=== PATIENT | female | born 2000 | race Caucasian/White ===

== ENCOUNTER 2022-09-22 06:17 | Day surgery (SDC) | payer OTHER, SELFPAY ==
[2022-09-22] MEDS ORDERED: Levofloxacin 500 mg/D5W 100 ml Premix Bag ONE ×2 (08:54→09:37)
[2022-09-22] MEDS ORDERED: fentaNYL PF 100 MCG/2 ML SYRINGE ONE (09:37)
[2022-09-22] MEDS ORDERED: Midazolam HCl 2 mg/2 ml Vial ONE (09:42)
[2022-09-22] MEDS ORDERED: Dexamethasone 20 MG/5 ML VIAL ONE (09:50)
[2022-09-22] MEDS ORDERED: Lidocaine 1% PF 5 ML VIAL ONE (09:50)
[2022-09-22] MEDS ORDERED: Ketorolac Tromethamine 30 MG/ML VIAL ONE (09:50)
[2022-09-22] MEDS ORDERED: PROPOFOL 200 MG/20 ML VIAL ONE (09:50)
[2022-09-22] MEDS ORDERED: Iopamidol 15 ML ONE (10:23)
[2022-09-22] MEDS ORDERED: Phenazopyridine HCl 100 MG TAB ONE (10:33)
[2022-09-22] MEDS ORDERED: Oxybutynin 5 MG TAB ONE (10:33)
== END 2022-09-22 12:50 | disposition home or self-care (01) ==
LOC: SDC 06:17
PROVIDERS: ATTEND Urology
PROC: 0T9780Z Drainage of Left Ureter with Drainage Device, Via Natural or Artificial Opening Endoscopic (ICD-10-PCS; principal; 2022-09-22)
DX: N13.2 Hydronephrosis with renal and ureteral calculous obstruction (principal); Z90.49 Acquired absence of other specified parts of digestive tract
CPT/HCPCS: 74420; 87086; C1769; C2617; J1100; J1885; J1956; J2250; J2704; Q9967

== ENCOUNTER 2022-09-24 11:29 | Outpatient (CLI) | payer OTHER ==
[2022-09-24 13:44] LABS: Hemoglobin 10.5 g/dL (12.0-15.5); Mean Corpuscular HGB CONC 32.7 g/dL (32.0-36.0); Mean Corpuscular Hemoglobin 29.5 pg (27.0-33.0); Mean Corpuscular Volume 90.2 fl (81.6-98.3); Mean Platelet Volume 11.4 fl (7.4-10.4); Platelet Count 266 10x3/uL (150-450); RBC Distribution Width 12.8 % (11.5-14.5); Red Blood Cell (RBC) Count 3.56 10x6/uL (3.90-5.03); White Blood Cell (WBC) Count 8.2 10x3/uL (3.5-10.5)
[2022-09-24 13:57] LABS: BHCG - Serum Negative (NEGATIVE); Pregs Control Background? CLEAR/WHITE (CLR/WHITE); Pregs Control Bar Appear? YES (CONTROL BAR)
[2022-09-24 14:05] LABS: Anion Gap 15 mmol/L (10-20); BUN (Urea Nitrogen) 9 mg/dL (7.0-18.7); Calc. Creatinine Clearance 0 mL/min (70-130); Calcium 8.9 mg/dL (7.8-10.44); Carbon Dioxide 25 mmol/L (22-29); Chloride 105 mmol/L (98-107); Estimated GFR 111; Glucose 71 mg/dL (70-105); Potassium 3.6 mmol/L (3.5-5.1); Sodium 141 mmol/L (136-145)
[2022-09-24 14:06] LABS: PTT 27.4 sec (22.0-33.0); Prothrombin Time 10.9 sec (9.5-12.1)
== END 2022-09-24 11:30 | disposition home or self-care (01) ==
LOC: LABBT 11:29
PROVIDERS: ATTEND Urology
DX: Z01.812 Encounter for preprocedural laboratory examination (principal); N20.2 Calculus of kidney with calculus of ureter
CPT/HCPCS: 80048; 84703; 85027; 85610; 85730

== ENCOUNTER 2022-09-29 07:42 | Day surgery (SDC) | payer OTHER ==
[2022-09-27 13:25] VITALS: BMI 18.8
[2022-09-29] MEDS ORDERED: Levofloxacin 500 mg/D5W 100 ml Premix Bag ONE (10:11)
[2022-09-29] MEDS ORDERED: Fentanyl 100 MCG/2 ML VIAL ONE (10:16)
[2022-09-29] MEDS ORDERED: Midazolam HCl 2 mg/2 ml Vial ONE (10:18)
[2022-09-29] MEDS ORDERED: Dexamethasone 20 MG/5 ML VIAL ONE (10:26)
[2022-09-29] MEDS ORDERED: Ondansetron PF 4 MG/2 ML Vial ONE (10:26)
[2022-09-29] MEDS ORDERED: NEOSTIGMINE 3 MG/3 ML SYR 3 MG/3 ML SYRINGE ONE (10:26)
[2022-09-29] MEDS ORDERED: PHENYLEPHRINE-NS 100 MCG/ML 10 ML SYRINGE ONE (10:26)
[2022-09-29] MEDS ORDERED: Lidocaine 1% PF 5 ML VIAL ONE (10:26)
[2022-09-29] MEDS ORDERED: Ketorolac Tromethamine 30 MG/ML VIAL ONE (10:26)
[2022-09-29] MEDS ORDERED: Rocuronium Bromide 10 MG/ML (10ML VIAL) ONE (10:26)
[2022-09-29] MEDS ORDERED: Glycopyrrolate 0.2 MG/ML 5 ML SYRINGE ONE (10:26)
[2022-09-29] MEDS ORDERED: PROPOFOL 200 MG/20 ML VIAL ONE (10:26)
[2022-09-29] MEDS ORDERED: SUGAMMADEX SODIUM 200 MG/2 ML VIAL ONE (11:20)
[2022-09-29] MEDS ORDERED: Phenazopyridine HCl 100 MG TAB ONE (11:56)
[2022-09-29] MEDS ORDERED: Oxybutynin 5 MG TAB ONE (11:57)
[2022-09-29] MEDS ORDERED: Iopamidol 15 ML ONE (14:12)
== END 2022-09-29 13:25 | disposition home or self-care (01) ==
LOC: SDC 07:42
PROVIDERS: ATTEND Urology
PROC: 0T778DZ Dilation of Left Ureter with Intraluminal Device, Via Natural or Artificial Opening Endoscopic (ICD-10-PCS; principal; 2022-09-29)
PROC: 0TC18ZZ Extirpation of Matter from Left Kidney, Via Natural or Artificial Opening Endoscopic (ICD-10-PCS; principal; 2022-09-29)
PROC: 0TC78ZZ Extirpation of Matter from Left Ureter, Via Natural or Artificial Opening Endoscopic (ICD-10-PCS; principal; 2022-09-29)
DX: N20.2 Calculus of kidney with calculus of ureter (principal); Z79.2 Long term (current) use of antibiotics; Z79.899 Other long term (current) drug therapy
CPT/HCPCS: 74420; 82365; 88300; C1758; C1769; C2617; J1100; J1885; J1956; J2250; J2405; J2704; J3010; Q9967